=== PATIENT | female | born 1955 | race Caucasian/White ===

== ENCOUNTER 2017-03-17 18:32 | Emergency (ER) | payer OTHER ==
[~2017-03-17] VITALS: Ht 160 cm; Wt 125.3 kg
[~2017-03-17 18:32] MED LIST: ASPCH81; ATOR-24 PO; CEPH500T PO; FLNIN NAE; FURO-85 PO; HYDR0.5T PO; LISI5TAB3 PO; MULT-506 PO; SYN137 PO; [UNRECOGNIZED DRUG - CODE] NAE
[2017-03-17 18:36] VITALS: TEMP 36.9; Ht 160 cm; Wt 125.3 kg
[2017-03-17] MEDS ORDERED: GABA-112 PO (18:55)
[2017-03-17] MEDS ORDERED: TRAM-10 PO (18:55)
[2017-03-17] MEDS ORDERED: FURO-85 PO (18:55)
[2017-03-17] MEDS ORDERED: GABA-113 PO (18:55)
[2017-03-17] MEDS ORDERED: ASPI81TA28 PO (18:55)
[2017-03-17] MEDS ORDERED: ACET1TAB84 PO (18:55)
[2017-03-17] MEDS ORDERED: PROB1TAB16 PO (18:55)
[2017-03-17] MEDS ORDERED: LEVO-519 PO (18:55)
[2017-03-17] MEDS ORDERED: TRMCR130WC TOP (18:55)
[2017-03-17] MEDS ORDERED: LISI20TA3 PO (18:55)
[2017-03-17] MEDS ORDERED: CEPH500C2 PO (19:12)
[2017-03-17] MEDS ORDERED: OMEG10007 PO (19:14)
[2017-03-17] MEDS ORDERED: METO25TA56 PO (19:14)
[2017-03-17] MEDS ORDERED: PRLSR20 PO (19:14)
--- NOTE | 2017-03-17 19:29 | EMERGENCY ROOM VISIT NOTE ---
ED Visit Note First contact with patient: 18:42 I have seen and examined this patient with Naun Luna and generally agree with the treatment plan as discussed. Current/Historical Medications Scheduled Aspirin (Aspirin Ec), 81 MG PO DAILY Atorvastatin (Lipitor), 40 MG PO DAILY Cephalexin (Cephalexin), 2,000 MG PO UD Cephalexin Monohydrate (Keflex), 500 MG PO QID Fish Oil ([place]-3), 1,000 MG PO BID Furosemide (Lasix), 20 MG PO DAILY Gabapentin (Neurontin), 100 MG PO QAM Gabapentin (Neurontin), 300 MG PO HS Levothyroxine Sodium (Synthroid), 137 MCG PO DAILY Lisinopril (Prinivil), 20 MG PO DAILY Metoprolol Tartrate (Lopressor) (Lopressor), 25 MG PO Q12 Multivitamin (Multivitamin), 1 TAB PO DAILY Omeprazole (Prilosec), 20 MG PO DAILY Oxymetazoline Hcl (Vicks Sinex 12 Hour Decon), 1 SPRAYS HIWOT PRN Probiotic Product (Probiotic), 1 TAB PO DAILY Scheduled PRN Acetaminophen (Tylenol Arthritis Ext Rel), 650 MG PO Q8H PRN for Pain Tramadol (Ultram), 50 MG PO Q6 PRN for Pain Triamcinolone Acet (Aristocort 0.1%), 1 APPLN TOP BID PRN for RASH Allergies Coded Allergies: Tetanus Toxoids (Verified Allergy, Mild, FLU-LIKE SYMPTOMS, 09/17/12) Penicillins (Verified Allergy, UNKNOWN, 09/17/12) Tetracycline (Verified Allergy, NAUSEA, 09/17/12) Carbamazepine (Verified Adverse Reaction, Severe, ANAPHYLAXIS, 09/17/12) Vital Signs Date Time Temp Pulse Resp B/P (MAP) Pulse Ox O2 Delivery O2 Flow Rate FiO2 03/17/17 19:25 61 20 162/101 98 Room Air 03/17/17 18:36 36.9 70 18 203/91 99 Room Air Departure Information Impression Primary Impression: Cellulitis of right knee Additional Impression: Contusion of right knee, initial encounter Dispostion Home / Self-Care Prescriptions Cephalexin Monohydrate (KEFLEX) 500 Mg Cap 500 MG PO QID, #20 CAP Prov: Carl Perera,P.A. 03/17/17 Forms HOME CARE DOCUMENTATION FORM, MOTRIN USE, IMPORTANT VISIT INFORMATION Patient Instructions My [facility] Additional Instructions Apply warm moist compresses to the knee several times per day until redness and discoloration resolve Keflex one pill 4 times a day 5 days Use a compression stocking to help with edema control Elevate the leg to reduce swelling Follow-up with your PCP for reexamination and to recheck your blood pressure Return to the ED for any acute worsening of symptoms Ibuprofen 600 mg every 6 hours as needed for discomfort Problem Qualifiers
[2017-03-17 19:57] VITALS: BP 141/99; PULSE 65; O2SAT 96
--- NOTE | 2017-03-17 20:32 | EMERGENCY ROOM VISIT NOTE ---
History First contact with patient: 18:42 Chief Complaint: LEG PAIN,LEG INJURY Stated Complaint: R KNEE PAIN, SWOLLEN FROM FALL ON ICE History of Present Illness The patient is a 62 year old white female who presents to the Emergency Room with complaints of right knee pain, swelling, and discoloration. Patient slipped on the ice 10 days ago and struck her medial right knee on a sidewalk curb edge. She had immediate onset of pain. She has been ambulatory. She states the knee was very black and blue, but this has improved with time. She continues to have swelling. She was seen at [facility] today due to some mild redness and warmth over the anterior knee. They referred her here for further evaluation. X-rays have been obtained. She denies any numbness or tingling. No fevers or chills. She notes some difficulty and fully flexing her knee. She ambulates with a mild limp. She thinks that she did injure this knee has a child and required casting for 6 weeks. She is unsure the exact injury. Her worst discomfort is over the medial knee. Her second worst discomfort is over the anterior patella. A male friend accompanies her today. She has been doing elevation for edema control. Review of Systems REVIEW OF SYSTEM: HEENT: No dizziness, visual problems, hearing loss, or tinnitus. There is no difficulty swallowing and no oral lesions are present. PULMONARY: No cough, shortness of breath, sputum production or hemoptysis. CARDIOVASCULAR: No chest pain, palpitations, shortness of breath or peripheral edema. GASTROINTESTINAL: No diarrhea, constipation, nausea, vomiting, or abdominal pain. GENITOURINARY: No dysuria, frequency, urgency or nocturia. NEUROLOGIC: No weakness, muscle tenderness, epilepsy or history of neurological problems. MUSCULOSKELETAL: No prior history of joint tenderness/swelling. Positive history of arthritis and arthralgias. SKIN: No rashes or lesions. ENDOCRINE: No history of diabetes, thyroid disorders, or abnormal hair growth. Past Medical/Surgical History Previous surgeries: Heart surgery. Medical history: Significant for hypertension, hypothyroidism, and obesity Family History Noncontributory. Social History Smoking Status: Never Smoker Smokeless Tobacco Use: No Drug Use: none Marital Status: single Housing Status: lives with family Occupation Status: employed Current/Historical Medications Scheduled Aspirin (Aspirin Ec), 81 MG PO DAILY Atorvastatin (Lipitor), 40 MG PO DAILY Cephalexin (Cephalexin), 2,000 MG PO UD Cephalexin Monohydrate (Keflex), 500 MG PO QID Fish Oil ([place]-3), 1,000 MG PO BID Furosemide (Lasix), 20 MG PO DAILY Gabapentin (Neurontin), 100 MG PO QAM Gabapentin (Neurontin), 300 MG PO HS Levothyroxine Sodium (Synthroid), 137 MCG PO DAILY Lisinopril (Prinivil), 20 MG PO DAILY Metoprolol Tartrate (Lopressor) (Lopressor), 25 MG PO Q12 Multivitamin (Multivitamin), 1 TAB PO DAILY Omeprazole (Prilosec), 20 MG PO DAILY Oxymetazoline Hcl (Vicks Sinex 12 Hour Decon), 1 SPRAYS HIWOT PRN Probiotic Product (Probiotic), 1 TAB PO DAILY Scheduled PRN Acetaminophen (Tylenol Arthritis Ext Rel), 650 MG PO Q8H PRN for Pain Tramadol (Ultram), 50 MG PO Q6 PRN for Pain Triamcinolone Acet (Aristocort 0.1%), 1 APPLN TOP BID PRN for RASH Physical Exam Vital Signs Date Time Temp Pulse Resp B/P (MAP) Pulse Ox O2 Delivery O2 Flow Rate FiO2 03/17/17 19:57 65 20 141/99 96 03/17/17 19:25 61 20 162/101 98 Room Air 03/17/17 18:36 36.9 70 18 203/91 99 Room Air Physical Exam Gen.: Well-developed, well-nourished, middle-aged white female, in no acute distress. Obvious discomfort. Sitting on a bed. Alert and oriented. Skin:Warm and dry with good turgor. No rashes. Extensive ecchymosis that is resolving over the medial, lateral, and posterior aspect of the knee. Does extend into the anterior barnett. Mild discomfort with palpation over all of it. No warmth. There is a small area of erythema over the anterior knee at the patella. It is approximately 2-3 cm in diameter and is mildly digna. Mild warmth. No significant fluid collection. There is nothing to drain. The patient is not diaphoretic. No abrasions. Musculoskeletal: Patient has full terminal extension. Visible generalized edema in the distal thigh, knee, and calf. No defect in the patellar tendon or quadriceps tendon. She is able to perform a straight leg raise. Stable collateral ligaments. No appreciable laxity with Jesus Alberto testing. I am unable to flex her enough for a posterior drawer. Flexion only to around 45 secondary to pain and swelling. No lateral joint line discomfort with palpation. Focal medial joint line pain with palpation. This is reproducible. There is also medial pain with circumduction testing. She has moderate discomfort with palpation over the prepatellar bursa. Mild warmth. Mild ruddiness. No significant swelling. There is nothing to drain. Intact motor function to the ankle without discomfort. Normal Dean test. Negative Homans test. Neurologic: Gross sensation is intact across the right lower extremity by soft touch. Peripheral pulses are 2+. Medical Decision & Procedures ER Provider Diagnostic Interpretation: Radiographic imaging obtained elsewhere was available for viewing through PACs. I find no evidence for fracture. She does have medial joint space narrowing as well as medial osteophytes. ED Course Patient was educated regarding today's findings. Conservative care measures were discussed. Examination findings were discussed at length. I did review her radiographic imaging. She was reassured that I find no evidence for fracture. She is ambulatory and has been so for the last 10 days. Possibility of medial meniscal injury was discussed. She does see Dr. Ragland and may follow -up with him if symptoms are persisting. Continue on ibuprofen 600 mg every 6 hours with food. We will add Keflex 500 mg 4 times a day 5 days as a prophylaxis against further cellulitis and bursitis. Patient is in agreement. She was reassured that I do not suspect DVT at this time. She has no evidence for compartment syndrome. Warm moist compresses to the knee several times per day. Use of a compression stocking may improve her edema. Continue with elevation for edema control. Return to the ED for any acute worsening of symptoms. She was hypertensive in the department. This was measured several times and did improve slightly. She will monitor it at home and follow-up with her PCP for a recheck. She is aware. Medical Decision Possibility of ligamentous disruption, fracture, meniscal disruption, DVT, compartment syndrome, contusion, prepatellar bursitis, infectious bursitis, hemarthrosis, and tendon rupture were all considered. Medication Reconcilliation Current Medication List: was personally reviewed by me Blood Pressure Screening Blood pressure disposition: Elevated BP felt to be situational Impression Primary Impression: Cellulitis of right knee Additional Impression: Contusion of right knee, initial encounter Departure Information Dispostion Home / Self-Care Condition FAIR Prescriptions Cephalexin Monohydrate (KEFLEX) 500 Mg Cap 500 MG PO QID, #20 CAP Prov: Carl Perera,P.A. 03/17/17 Forms HOME CARE DOCUMENTATION FORM, MOTRIN USE, IMPORTANT VISIT INFORMATION Patient Instructions My [facility] Additional Instructions Apply warm moist compresses to the knee several times per day until redness and discoloration resolve Keflex one pill 4 times a day 5 days Use a compression stocking to help with edema control Elevate the leg to reduce swelling Follow-up with your PCP for reexamination and to recheck your blood pressure Return to the ED for any acute worsening of symptoms Ibuprofen 600 mg every 6 hours as needed for discomfort Problem Qualifiers
== END 2017-03-17 19:59 | disposition home or self-care (01) ==
LOC: C.EDB 18:36 → C.EDD 19:59
DX: S80.01XA Contusion of right knee, initial encounter (principal); L03.115 Cellulitis of right lower limb; W00.0XXA Fall on same level due to ice and snow, initial encounter; Y92.89 Other specified places as the place of occurrence of the external cause; I10 Essential (primary) hypertension; E03.9 Hypothyroidism, unspecified; E66.9 Obesity, unspecified; Z79.82 Long term (current) use of aspirin; Z79.899 Other long term (current) drug therapy